=== PATIENT | female | born 1945 | race Caucasian/White ===

== ENCOUNTER 2017-09-09 19:54 | Observation (INO) | payer MEDICARE ==
[~2017-09-09] VITALS: Ht 172.7 cm; Wt 102.0 kg
[2017-09-09 20:03] VITALS: BP 150/74; PULSE 83; RESP 18; O2SAT 98
[2017-09-09] MEDS ORDERED: METF500T PO (20:11)
[2017-09-09] MEDS ORDERED: METO50TA PO (20:11)
[2017-09-09] MEDS ORDERED: IRBE300T44 PO (20:11)
[2017-09-09] MEDS ORDERED: ASPI81TA23 PO (20:11)
[2017-09-09] MEDS ORDERED: AMLO5 PO (20:11)
[2017-09-09 20:15] VITALS: BP 144/68; PULSE 80; RESP 15; O2SAT 98
[2017-09-09] MEDS ORDERED: SODIUM CHLORIDE 0.9% FLUSH 10 ML FLUSH IVF PRN (20:15)
--- NOTE | 2017-09-09 20:20 | PD ---
HPI Chief Complaint: Syncope/Near-Syncope Time Seen by Provider: 20:03 Travel History International Travel<30 days: No Contact w/Intl Traveler<30days: No Traveled to known affect area: No History of Present Illness HPI This is a 71-year-old female who reports a history of hypertension and type 2 diabetes. She presents via EMS for evaluation of a witnessed syncopal event. Prior to arrival the patient was in a park with family members during exercise activities with rubber bands for resistance purposes. She began developing dizziness and lightheadedness. This lasted for approximately 5 minutes and then she had a witnessed syncopal event while in the sitting position. The syncopal event lasted several seconds according to a family member who is present. Per paramedics when fire rescue arrived her blood pressure was 94/60 and her heart rate was in the 40s. When EMS arrived her heart rate was in the 70s and her blood pressure was 110/70. She is currently complaining of a mild frontal headache which started prior to arrival here. She is currently receiving 1 L of normal saline by EMS. She denies any episodic chest pain, shortness of breath, blurred vision, nausea or vomiting, diaphoresis, vertigo, abdominal pain, diarrhea or constipation. She reports that she has had syncopal episodes in the past. Denies any known history of structural heart disease or coronary artery disease. Her primary care physician is Dr. Cannon. No other complaints. PFSH Past Medical History Cerebrovascular Accident: Yes (HTN ) Diabetes: Yes (type 2 on metformin ) Patient Takes Glucophage: Yes ?: Not Menopausal: Yes Past Surgical History Surgical History: No Previous Surgery Hysterectomy: Yes Social History Alcohol Use: No Tobacco Use: No Substance Use: No Allergies-Medications (Allergen,Severity, Reaction): Coded Allergies: codeine (Verified Allergy, Unknown, 09/09/17) Reported Meds & Prescriptions Reported Meds & Active Scripts Active Reported Aspirin EC (Aspirin) 81 Mg Tabdr 81 Mg PO EVERY OTHER DAY Norvasc (Amlodipine Besylate) 5 Mg Tab 5 Mg PO DAILY Avapro (Irbesartan) 300 Mg Tab 300 Mg PO DAILY Metoprolol Tartrate 50 Mg Tab 50 Mg PO BID Metformin (Metformin HCl) 500 Mg Tab 500 Mg PO TIDPC Review of Systems Except as stated in HPI: all other systems reviewed are Neg Physical Exam Narrative GENERAL: Pleasant well-developed well-nourished female in no acute distress resting comfortably in hospital bed. SKIN: Warm and dry. HEAD: Atraumatic. Normocephalic. EYES: Pupils equal and round. No scleral icterus. No injection or drainage. ENT: No nasal bleeding or discharge. Mucous membranes pink and moist. NECK: Trachea midline. No JVD. CARDIOVASCULAR: Regular rate and rhythm. No murmur appreciated. RESPIRATORY: No accessory muscle use. Clear to auscultation. Breath sounds equal bilaterally. GASTROINTESTINAL: Abdomen soft, non-tender, nondistended. Hepatic and splenic margins not palpable. MUSCULOSKELETAL: No obvious deformities. No clubbing. No cyanosis. No edema. NEUROLOGICAL: Awake and alert. No obvious cranial nerve deficits. Motor grossly within normal limits. Normal speech. PSYCHIATRIC: Appropriate mood and affect; insight and judgment normal. Data Data Last Documented VS Vital Signs Date Time Temp Pulse Resp B/P (MAP) Pulse Ox O2 Delivery O2 Flow Rate FiO2 09/09/17 20:15 80 15 144/68 (93) 98 Orders Orders Electrocardiogram (09/09/17 20:07) Complete Blood Count With Diff (09/09/17 20:07) Comprehensive Metabolic Panel (09/09/17 20:07) Magnesium (Mg) (09/09/17 20:07) Ckmb (Isoenzyme) Profile (09/09/17 20:07) Troponin I (09/09/17 20:07) Act Partial Throm Time (Ptt) (09/09/17 20:07) Prothrombin Time / Inr (Pt) (09/09/17 20:07) Ct Brain W/O Iv Contrast(Rout) (09/09/17 20:07) Blood Glucose (09/09/17 20:07) Ecg Monitoring (09/09/17 20:07) Iv Access Insert/Monitor (09/09/17 20:07) Oximetry (09/09/17 20:07) Sodium Chloride 0.9% Flush (Ns Flush) (09/09/17 20:15) Orthostatic Vital Signs (09/09/17 20:07) Chest, Single Ap (09/09/17 ) CKMB (09/09/17 20:38) CKMB% (09/09/17 20:38) Diet 1800 Ada Cons Carb (09/10/17 Breakfast) Labs Laboratory Tests Test 09/09/17 20:38 White Blood Count 6.4 TH/MM3 Red Blood Count 4.42 MIL/MM3 Hemoglobin 12.2 GM/DL Hematocrit 36.8 % Mean Corpuscular Volume 83.4 FL Mean Corpuscular Hemoglobin 27.5 PG Mean Corpuscular Hemoglobin Concent 33.0 % Red Cell Distribution Width 14.3 % Platelet Count 235 TH/MM3 Mean Platelet Volume 8.3 FL Neutrophils (%) (Auto) 67.9 % Lymphocytes (%) (Auto) 20.4 % Monocytes (%) (Auto) 7.2 % Eosinophils (%) (Auto) 3.7 % Basophils (%) (Auto) 0.8 % Neutrophils # (Auto) 4.3 TH/MM3 Lymphocytes # (Auto) 1.3 TH/MM3 Monocytes # (Auto) 0.5 TH/MM3 Eosinophils # (Auto) 0.2 TH/MM3 Basophils # (Auto) 0.1 TH/MM3 CBC Comment DIFF FINAL Differential Comment Prothrombin Time 10.7 SEC Prothromb Time International Ratio 1.1 RATIO Activated Partial Thromboplast Time 22.9 SEC Blood Urea Nitrogen 18 MG/DL Creatinine 1.03 MG/DL Random Glucose 179 MG/DL Total Protein 6.5 GM/DL Albumin 3.4 GM/DL Calcium Level 8.7 MG/DL Magnesium Level 1.6 MG/DL Alkaline Phosphatase 73 U/L Aspartate Amino Transf (AST/SGOT) 22 U/L Alanine Aminotransferase (ALT/SGPT) 31 U/L Total Bilirubin 0.4 MG/DL Sodium Level 139 MEQ/L Potassium Level 3.9 MEQ/L Chloride Level 105 MEQ/L Carbon Dioxide Level 23.8 MEQ/L Anion Gap 10 MEQ/L Estimat Glomerular Filtration Rate 53 ML/MIN Total Creatine Kinase 103 U/L Troponin I LESS THAN 0.02 NG/ML [facility] Medical Decision Making Medical Screen Exam Complete: Yes Emergency Medical Condition: Yes Medical Record Reviewed: Yes Differential Diagnosis Aortic stenosis, arrhythmia, dehydration, electrolyte abnormality, orthostatic hypotension, subarachnoid hemorrhage, hypoglycemia, seizure Narrative Course 71-year-old female presents after having an exertional syncopal episode. Patient was placed on ECG monitoring pulse oximetry. 12-lead EKG was obtained revealing sinus rhythm with occasional supraventricular premature complexes. CT the brain reveals no acute abnormalities. CBC is unremarkable. CMP reveals a GFR 53, glucose 179. Cardiac enzymes are normal. The patient has remained stable during her ED stay. At this point time the plan will be to admit her for observation for further evaluation of her exertional syncopal event. She is agreeable. Diagnosis Primary Impression: Syncope Admitting Information Admitting Physician Requests: Observation Ariel Zhang Sep 09, 2017 20:20
--- NOTE | 2017-09-09 20:34 | RADRPT ---
EXAM DATE/TIME: 09/09/2017 20:19 [facility] COMPARISON: No previous studies available for comparison. INDICATIONS : Syncope RADIATION DOSE: 36.97 CTDIvol (mGy) MEDICAL HISTORY : Hypertension. Diabetes mellitus type 2. SURGICAL HISTORY : Hysterectomy. ENCOUNTER: Initial ACUITY: 1 day PAIN SCALE: 3/10 LOCATION: cranial TECHNIQUE: Multiple contiguous axial images were obtained of the head. Using automated exposure control and adj ustment of the mA and/or kV according to patient size, radiation dose was kept as low as reasonably a chievable to obtain optimal diagnostic quality images. DICOM format image data is available electro nically for review and comparison. FINDINGS: CEREBRUM: The ventricles are normal for age. No evidence of midline shift, mass lesion, hemorrhage or acute in farction. No extra-axial fluid collections are seen. POSTERIOR FOSSA: The cerebellum and brainstem are intact. The 4th ventricle is midline. The cerebellopontine angle i s unremarkable. EXTRACRANIAL: The visualized portion of the orbits is intact. SKULL: The calvaria is intact. No evidence of skull fracture. CONCLUSION: Negative noncontrast head CT. Ronny Drew MD on September 09, 2017 at 20:31 Board Certified Radiologist. This report was verified electronically.
[2017-09-09 21:21] LABS: AUTOMATED NEUTROPHIL # 4.3 TH/MM3 (1.8-7.7); BASOPHIL # 0.1 TH/MM3 (0-0.2); BASOPHIL % 0.8 % (0.0-2.0); EOSINOPHIL # 0.2 TH/MM3 (0-0.4); EOSINOPHIL % 3.7 % (0.0-4.0); HEMATOCRIT 36.8 % (35.0-46.0); HEMOGLOBIN 12.2 GM/DL (11.6-15.3); LYMPH % 20.4 % (9.0-44.0); LYMPHOCYTE # 1.3 TH/MM3 (1.0-4.8); MEAN CELL VOLUME 83.4 FL (80.0-100.0); MEAN CORPUSCULAR HEMOGLOBIN 27.5 PG (27.0-34.0); MEAN PLATELET VOLUME 8.3 FL (7.0-11.0); MONO % 7.2 % (0.0-8.0); MONOCYTE # 0.5 TH/MM3 (0-0.9); NEUT % 67.9 % (16.0-70.0); PLATELET COUNT 235 TH/MM3 (150-450); RED BLOOD COUNT 4.42 MIL/MM3 (4.00-5.30); RED CELL DISTRIBUTION WIDTH 14.3 % (11.6-17.2); WHITE BLOOD COUNT 6.4 TH/MM3 (4.0-11.0)
[2017-09-09 21:33] LABS: INTERNATIONAL NORMALIZED RATIO 1.1 RATIO; PROTHROMBIN TIME - PATIENT 10.7 SEC (9.8-11.6)
[2017-09-09 21:49] LABS: ALBUMIN 3.4 GM/DL (3.4-5.0); ALT (GPT) 31 U/L (10-53); AST (GOT) 22 U/L (15-37); BICARBONATE 23.8 MEQ/L (21.0-32.0); BLOOD UREA NITROGEN 18 MG/DL (7-18); CALCIUM 8.7 MG/DL (8.5-10.1); CHLORIDE 105 MEQ/L (98-107); CREATININE 1.03 MG/DL (0.50-1.00); GLOMERULAR FILTRATION RATE 53 ML/MIN (>89); GLUCOSE,RANDOM 179 MG/DL (74-106); MAGNESIUM 1.6 MG/DL (1.5-2.5); SODIUM (NA) 139 MEQ/L (136-145)
[2017-09-09 21:53] LABS: ALKALINE PHOSPHATASE 73 U/L (45-117); TOTAL BILIRUBIN ADULT 0.4 MG/DL (0.2-1.0); TOTAL PROTEIN 6.5 GM/DL (6.4-8.2); TROPONIN I LESS THAN 0.02 NG/ML (0.02-0.05)
--- NOTE | 2017-09-09 22:16 | RADRPT ---
EXAM DATE/TIME: 09/09/2017 21:49 [facility] COMPARISON: No previous studies available for comparison. INDICATIONS : Syncope. MEDICAL HISTORY : Hypertension. SURGICAL HISTORY : None. ENCOUNTER: Initial ACUITY: 1 day PAIN SCORE: 0/10 LOCATION: Bilateral chest FINDINGS: A single view of the chest demonstrates the lungs to be symmetrically aerated without evidence of mas s, infiltrate or effusion. The cardiomediastinal contours are unremarkable. Osseous structures are intact. CONCLUSION: No acute cardiopulmonary disease demonstrated. Ronny Drew MD on September 09, 2017 at 22:14 Board Certified Radiologist. This report was verified electronically.
[2017-09-09] MEDS ORDERED: NALOXONE HCL 0.4 MG/ML AMP IV PUSH PRN (23:00)
[2017-09-09] MEDS ORDERED: SODIUM CHLORIDE 0.9% FLUSH 10 ML FLUSH IV FLUSH PRN (23:00)
[2017-09-09] MEDS ORDERED: GLUCAGON 1 MG/ML VIAL OTHER PRN (23:00)
[2017-09-09] MEDS ORDERED: ACETAMINOPHEN 325 MG TAB PO PRN (23:00)
[2017-09-09] MEDS ORDERED: DEXTROSE 50% IN WATER 50 ML VIAL(D50) IV PUSH PRN (23:00)
[2017-09-09] MEDS ORDERED: ONDANSETRON HCL 4 MG/2 ML VIAL IVP PRN (23:00)
--- NOTE | 2017-09-09 23:11 | HHI.HP ---
[facility] Service [facility] Primary Care Physician Unknown Admission Diagnosis Syncope Diagnoses: Travel History International Travel<30 Days: No Contact w/Intl Traveler <30 Da: No Traveled to Known Affected Are: No History of Present Illness 71-year-old female with a past medical history significant for hypertension and type 2 diabetes mellitus presents to the emergency department for evaluation of a syncopal episode. The patient reports she was working out with her family when she felt dizzy. She stopped working out and sat down and continued to feel lightheaded. She had 2 short episodes of loss of consciousness lasting approximately 2-3 seconds each time, witnessed by family members. No seizure activity. No bowel or bladder incontinence. She denies any associated chest pain or shortness of breath. No fevers/chills. No abdominal pain. No nausea/ vomiting/diarrhea. No lateralizing signs/symptoms. Review of Systems Except as stated in HPI: all other systems reviewed are Neg Past Family Social History Past Medical History Hypertension Diabetes mellitus Past Surgical History Hysterectomy Collarbone repair in childhood Reported Medications Reported Meds & Active Scripts Active Reported Aspirin EC (Aspirin) 81 Mg Tabdr 81 Mg PO EVERY OTHER DAY Norvasc (Amlodipine Besylate) 5 Mg Tab 5 Mg PO DAILY Avapro (Irbesartan) 300 Mg Tab 300 Mg PO DAILY Metoprolol Tartrate 50 Mg Tab 50 Mg PO BID Metformin (Metformin HCl) 500 Mg Tab 500 Mg PO TIDPC Allergies: Coded Allergies: codeine (Verified Allergy, Unknown, 09/09/17) Family History Negative for CAD/DM Social History Denies alcohol, tobacco and illicit drug Physical Exam Vital Signs Vital Signs Date Time Temp Pulse Resp B/P (MAP) Pulse Ox O2 Delivery O2 Flow Rate FiO2 09/09/17 20:15 80 15 144/68 (93) 98 09/09/17 20:03 83 18 150/74 (99) 98 Physical Exam GENERAL: female sitting up in bed SKIN: No rashes, ecchymoses or lesions. Cool and dry. HEAD: Atraumatic. Normocephalic. No temporal or scalp tenderness. EYES: Pupils equal round and reactive. Extraocular motions intact. No scleral icterus. No injection or drainage. ENT: Nose without bleeding, purulent drainage or septal hematoma. Throat without erythema, tonsillar hypertrophy or exudate. Uvula midline. Airway patent. NECK: Trachea midline. No JVD or lymphadenopathy. Supple, nontender, no meningeal signs. CARDIOVASCULAR: Regular rate and rhythm without murmurs, gallops, or rubs. RESPIRATORY: Clear to auscultation. Breath sounds equal bilaterally. No wheezes , rales, or rhonchi. GASTROINTESTINAL: Abdomen soft, non-tender, nondistended. No hepato-splenomegaly , or palpable masses. No guarding. MUSCULOSKELETAL: Bilateral pedal edema. No calf tenderness. NEUROLOGICAL: Awake and alert. Cranial nerves II through XII intact. Motor and sensory grossly within normal limits. Normal speech. Laboratory Laboratory Tests Test 09/09/17 20:38 White Blood Count 6.4 Red Blood Count 4.42 Hemoglobin 12.2 Hematocrit 36.8 Mean Corpuscular Volume 83.4 Mean Corpuscular Hemoglobin 27.5 Mean Corpuscular Hemoglobin Concent 33.0 Red Cell Distribution Width 14.3 Platelet Count 235 Mean Platelet Volume 8.3 Neutrophils (%) (Auto) 67.9 Lymphocytes (%) (Auto) 20.4 Monocytes (%) (Auto) 7.2 Eosinophils (%) (Auto) 3.7 Basophils (%) (Auto) 0.8 Neutrophils # (Auto) 4.3 Lymphocytes # (Auto) 1.3 Monocytes # (Auto) 0.5 Eosinophils # (Auto) 0.2 Basophils # (Auto) 0.1 CBC Comment DIFF FINAL Differential Comment Prothrombin Time 10.7 Prothromb Time International Ratio 1.1 Activated Partial Thromboplast Time 22.9 Blood Urea Nitrogen 18 Creatinine 1.03 Random Glucose 179 Total Protein 6.5 Albumin 3.4 Calcium Level 8.7 Magnesium Level 1.6 Alkaline Phosphatase 73 Aspartate Amino Transf (AST/SGOT) 22 Alanine Aminotransferase (ALT/SGPT) 31 Total Bilirubin 0.4 Sodium Level 139 Potassium Level 3.9 Chloride Level 105 Carbon Dioxide Level 23.8 Anion Gap 10 Estimat Glomerular Filtration Rate 53 Total Creatine Kinase 103 Creatine Kinase MB 1.3 Troponin I LESS THAN 0.02 Result Diagram: 09/09/17203709/09/172037 Caprini VTE Risk Assessment Caprini VTE Risk Assessment: Mod/High Risk (score >= 2) Caprini Risk Assessment Model Point Value = 1 Point Value = 2 Point Value = 3 Point Value = 5 Age 41-60 Minor surgery BMI > 25 kg/m2 Swollen legs Varicose veins or History of unexplained or recurrent spontaneous Oral contraceptives or hormone replacement Sepsis (< 1 month) Serious lung disease, including pneumonia (< 1 month) Abnormal pulmonary function Acute myocardial infarction Congestive heart failure (< 1 month) History of inflammatory bowel disease Medical patient at bed rest Age 61-74 Arthroscopic surgery Major open surgery (> 45 min) Laparoscopic surgery (> 45 min) Malignancy Confined to bed (> 72 hours) Immobilizing plaster cast Central venous access Age >= 75 History of VTE Family history of VTE Factor V Leiden Prothrombin [id number] Lupus anticoagulant Anticardiolipin antibodies Elevated serum homocysteine Heparin-induced thrombocytopenia Other congenital or acquired thrombophilia Stroke (< 1 month) Elective arthroplasty Hip, pelvis, or leg fracture Acute spinal cord injury (< 1 month) Prophylaxis Regimen Total Risk Factor Score Risk Level Prophylaxis Regimen 0-1 Low Early ambulation 2 Moderate Order ONE of the following: *Sequential Compression Device (SCD) *Heparin 5000 units SQ BID 3-4 Higher Order ONE of the following medications: *Heparin 5000 units SQ TID *Enoxaparin/Lovenox 40 mg SQ daily (WT < 150 kg, CrCl > 30 mL/min) *Enoxaparin/Lovenox 30 mg SQ daily (WT < 150 kg, CrCl > 10-29 mL/min) *Enoxaparin/Lovenox 30 mg SQ BID (WT < 150 kg, CrCl > 30 mL/min) AND/OR *Sequential Compression Device (SCD) 5 or more Highest Order ONE of the following medications: *Heparin 5000 units SQ TID (Preferred with Epidurals) *Enoxaparin/Lovenox 40 mg SQ daily (WT < 150 kg, CrCl > 30 mL/min) *Enoxaparin/Lovenox 30 mg SQ daily (WT < 150 kg, CrCl > 10-29 mL/min) *Enoxaparin/Lovenox 30 mg SQ BID (WT < 150 kg, CrCl > 30 mL/min) AND *Sequential Compression Device (SCD) Assessment and Plan Assessment and Plan Assessment/plan: 1. Syncope Unclear etiology Orthostatic vital signs pending Head CT negative Echo, carotid ultrasound pending Telemetry 2. Diabetes mellitus Holding home metformin Sliding-scale insulin Monitor blood glucose 3. Hypertension Continue home antihypertensives, current BP 150/74 FEN Heart healthy diet Electrolytes: Monitor and replete as needed Heparin Ning Rockwell MD Sep 09, 2017 23:11
[2017-09-09] MEDS ORDERED: SODIUM CHLOR 0.9% 1000 ML INJ 1,000 ML IV SCH (23:15)
[2017-09-09 23:17] VITALS: BP 143/68
[2017-09-10 00:11] VITALS: BP 133/63; PULSE 81; RESP 18; TEMP 97.5; O2SAT 96
[2017-09-10 00:17] VITALS: BP_SYST 131; BP_SYST 151; BP_DIAS 62; BP_DIAS 70; PULSE 86; PULSE 90
[2017-09-10 04:00] VITALS: BP 144/70; PULSE 77; RESP 17; TEMP 97.8; O2SAT 95
[2017-09-10 04:04] VITALS: PULSE 71
[2017-09-10 07:11] LABS: AUTOMATED NEUTROPHIL # 2.6 TH/MM3 (1.8-7.7); BASOPHIL # 0.1 TH/MM3 (0-0.2); BASOPHIL % 1.1 % (0.0-2.0); EOSINOPHIL # 0.2 TH/MM3 (0-0.4); EOSINOPHIL % 4.5 % (0.0-4.0); HEMATOCRIT 34.9 % (35.0-46.0); HEMOGLOBIN 11.9 GM/DL (11.6-15.3); LYMPH % 32.5 % (9.0-44.0); LYMPHOCYTE # 1.6 TH/MM3 (1.0-4.8); MEAN CELL VOLUME 83.4 FL (80.0-100.0); MEAN CORPUSCULAR HEMOGLOBIN 28.4 PG (27.0-34.0); MEAN PLATELET VOLUME 8.3 FL (7.0-11.0); MONO % 8.2 % (0.0-8.0); MONOCYTE # 0.4 TH/MM3 (0-0.9); NEUT % 53.7 % (16.0-70.0); PLATELET COUNT 220 TH/MM3 (150-450); RED BLOOD COUNT 4.18 MIL/MM3 (4.00-5.30); RED CELL DISTRIBUTION WIDTH 13.9 % (11.6-17.2); WHITE BLOOD COUNT 4.9 TH/MM3 (4.0-11.0)
[2017-09-10 07:42] LABS: BICARBONATE 25.7 MEQ/L (21.0-32.0); CALCIUM 8.8 MG/DL (8.5-10.1); CREATININE 0.78 MG/DL (0.50-1.00)
[2017-09-10] MEDS: INSULIN ASPART SUPPLEMENTAL SCALE SQ SCH ×2 (08:00→12:25)
[2017-09-10 08:03] VITALS: BP_SYST 141; BP_SYST 157; BP_SYST 159; BP_DIAS 69; BP_DIAS 74; BP_DIAS 75; PULSE 78; RESP 18; TEMP 98.3; O2SAT 96
[2017-09-10] MEDS ORDERED: LOSARTAN 50 MG TAB PO SCH (09:00)
[2017-09-10] MEDS ORDERED: METOPROLOL TARTRATE 50 MG TAB PO SCH (09:00)
[2017-09-10] MEDS ORDERED: amLODIPine BESYLATE 5 MG TAB PO SCH (09:00)
[2017-09-10] MEDS ORDERED: SODIUM CHLORIDE 0.9% FLUSH 10 ML FLUSH IV FLUSH SCH (09:00)
[2017-09-10] MEDS ORDERED: HEPARIN SODIUM - SQ 10,000 UNITS/ML VIAL SQ SCH (09:00)
--- NOTE | 2017-09-10 10:03 | HHI.PR ---
Subjective Remarks Follow-up on patient with syncopal episode. Patient seen and examined. Patient states she feels fine this morning. She denies any complaints. She denies any dizziness, headache or vision changes. She denies any chest pain or shortness of breath. Denies any fever or chills. Denies any nausea, vomiting or abdominal pain. Patient was apparently working outside with [employer] prior to her syncopal episode. States she had not drank much water that day. She denies any associated palpitations, chest pain, shortness of breath, nausea or vomiting. She denies any associated slurred speech, seizure activity, weakness or numbness or tingling. Objective Vitals Vital Signs Date Time Temp Pulse Resp B/P (MAP) Pulse Ox O2 Delivery O2 Flow Rate FiO2 09/10/17 08:03 98.3 78 18 141/69 (93) 96 159/75 (103) 157/74 (101) 09/10/17 04:04 71 09/10/17 04:00 97.8 77 17 144/70 (94) 95 09/10/17 00:17 86 131/62 (85) 09/10/17 00:17 90 151/70 (97) 09/10/17 00:11 97.5 81 18 133/63 (86) 96 09/09/17 23:17 80 18 143/68 (93) 99 09/09/17 20:15 80 15 144/68 (93) 98 09/09/17 20:03 83 18 150/74 (99) 98 Result Diagram: 09/10/1762309/10/17623 Imaging Last Impressions Head CT 09/09/172006 Signed Impressions: Service Date/Time: August 20:19 - CONCLUSION: Negative noncontrast head CT. Ronny Drew MD Chest X-Ray 09/09/17 0000 Signed Impressions: Service Date/Time: August 21:49 - CONCLUSION: No acute cardiopulmonary disease demonstrated. Ronny rDew MD Objective Remarks GENERAL: Well-developed well-nourished elderly female patient. Awake and alert. Sitting up in bed. Appears comfortable. SKIN: Warm and dry. HEAD: Atraumatic. Normocephalic. No temporal or scalp tenderness. EYES: Pupils equal round and reactive. Extraocular motions intact. No scleral icterus. No injection or drainage. ENT: Nose without bleeding or purulent drainage. Airway patent. MMM. NECK: Trachea midline. CARDIOVASCULAR: Regular rate and rhythm without murmurs, gallops, or rubs. RESPIRATORY: Clear to auscultation. Breath sounds equal bilaterally. No wheezes , rales, or rhonchi. GASTROINTESTINAL: Abdomen soft, non-tender, nondistended. No hepato-splenomegaly , or palpable masses. No guarding. MUSCULOSKELETAL: BLE no cyanosis, clubbing or edema noted. No calf tenderness. NEUROLOGICAL: Awake and alert. Cranial nerves II through XII grossly intact. Motor and sensory grossly within normal limits. No focal neurologic findings. Normal speech. PSYCHIATRIC: Appropriate mood and affect. Normal judgment and insight. Medications and IVs Current Medications Medications (Trade) Dose Ordered Sig/Ant Route Start Time Stop Time Status Last Admin (NS Flush) 2 ml UNSCH PRN IV FLUSH 09/09/17 23:00 (NS Flush) 2 ml BID IV FLUSH 09/10/17 09:00 (Tylenol) 650 mg Q4H PRN PO 09/09/17 23:00 (Zofran Inj) 4 mg Q6H PRN IVP 09/09/17 23:00 (Narcan Inj) 0.4 mg UNSCH PRN IV PUSH 09/09/17 23:00 (D50w (Vial) Inj) 50 ml UNSCH PRN IV PUSH 09/09/17 23:00 (Glucagon Inj) 1 mg UNSCH PRN OTHER 09/09/17 23:00 (NovoLOG SUPPLEMENTAL SCALE) 1 ACHS SLIDING SCALE SQ 09/10/17 08:00 Sodium Chloride 1,000 ml @ 84 mls/hr [id number] IV 09/09/17 23:15 09/09/17 23:15 (Norvasc) 5 mg DAILY PO 09/10/17 09:00 09/10/17 09:35 (Ecotrin Ec) 81 mg EVERY OTHER DAY PO 09/11/17 09:00 (Lopressor) 50 mg BID PO 09/10/17 09:00 09/10/17 09:35 (Cozaar) 100 mg DAILY PO 09/10/17 09:00 09/10/17 09:35 (Heparin Inj) 5,000 units Q12HR SQ 09/10/17 09:00 09/10/17 09:35 A/P Assessment and Plan 71-year-old female with a past medical history significant for hypertension and type 2 diabetes mellitus presents to the emergency department for evaluation of a syncopal episode. Syncope Unclear etiology, suspect secondary to dehydration, volume depletion Orthostatic vital signs negative EEG with no e/o seizure activity Carotid US with no hemodynamically significant stenosis Head CT negative -Follow-up on carotid ultrasound and echocardiogram results -continue IVF -Continue to monitor on telemetry -Holter monitor -PT eval with no post discharge needs identified JOHNNIE, resolved Suspect secondary to dehydration, volume depletion -Unknown baseline, no labs for comparison -Creatinine 1.03 at admission, improved to 0.78 s/p IVF -Avoid nephrotoxic agents -Continue to monitor kidney function as indicated Diabetes mellitus -continue to hold home metformin -Sliding-scale insulin -Monitor blood glucose -obtain A1c level -Change to heart healthy diabetic diet Hypertension -Continue patient on home dose of Norvasc 5 mg daily, Lopressor 51 g twice daily and Cozaar 100 mg daily -Continue to monitor BP and adjust treatment accordingly FEN Heart healthy diabetic diet Electrolytes: Monitor and replete as needed Heparin 1553 echocardiogram resulted: Left ventricular systolic function is normal with an estimated ejection fraction in the range of 55-60%. Wall thickness is measured at the upper limits of normal. Mild mitral valve regurgitation. [id number] aortic valve regurgitation. There is trace tricuspid valve regurgitation. Trivial pulmonary valve regurgitation. Discharge patient to home Condition on discharge: Improved Heart healthy diabetic Diet as tolerated Ad Hattie activity Rx written: Follow-up with primary care physician and cardiology Nadege Talley Sep 10, 2017 10:03
--- NOTE | 2017-09-10 11:49 | RADRPT ---
EXAM DATE/TIME: 09/10/2017 11:07 [facility] COMPARISON: No previous studies available for comparison. INDICATIONS : Syncope. MEDICAL HISTORY : Hypertension. Diabetes mellitus type 2. Syncope. CVA. SURGICAL HISTORY : Hysterectomy. Ankle and collar bone fracture. ENCOUNTER: Initial ACUITY: 1 day PAIN SCORE: 0/10 LOCATION: Bilateral neck PEAK SYSTOLIC VELOCITIES (cm/sec): ICA/CCA RATIO: Right: 0.9 Left: 1.2 ICA: Right: 69 Left: 96 CCA: Right: 81 Left: 81 ECA: Right: 84 Left: 69 VERTEBRAL: Right: 46 antegrade Left: 33 antegrade Elevated flow velocities and ICA/CCA ratios have been found to correlate with increased degrees of vessel stenosis, calculated as percentage of diameter relative to a normal segment of distal ICA/CCA FINDINGS: RIGHT CAROTID: Calcified plaque in the right carotid bulb extending up into the internal. The waveforms are within normal limits. LEFT CAROTID: No significant stenosis is visualized. The waveforms are within normal limits. VERTEBRAL ARTERIES: Antegrade flow is seen in both vertebral arteries. MISCELLANEOUS: None. CONCLUSION: 1. Calcified plaque in the right carotid bulb extending into the internal. 2. However, no sonographic or Doppler findings of a hemodynamically significant stenosis. Antegrade f low in both vertebral arteries. Fidencio Cartagena MD on September 10, 2017 at 11:44 Board Certified Radiologist. This report was verified electronically.
[2017-09-10 11:57] VITALS: BP 136/64; PULSE 73; RESP 18; TEMP 98.7; O2SAT 96
--- NOTE | 2017-09-10 13:46 | EKG ---
Date Performed: 09/09/2017 Time Performed: 20:31:58 PTAGE: 71 years EKG: Sinus rhythm WITH OCCASIONAL SUPRAVENTRICULAR PREMATURE COMPLEXES BORDERLINE ECG PREVIOUS TRACING : 04/13/2005 21.34 Since the previous tracing, no significant change noted DOCTOR: Reji Friend Interpretating Date/Time 09/10/2017 13:43:58
--- NOTE | 2017-09-10 15:09 | MG ---
cc: Nico Nicolas MD, PhD DATE OF STUDY: 09/10/2017 TEST NUMBER: [id number] TECHNIQUE: This is a 17-channel EEG. DESCRIPTION: Background rhythm is symmetrical alpha frequency, 8 Hz amplitude, 20 microvolts. No lateralizing features are identified. No epileptiform features are identified. There is some muscle artifact present. Hyperventilation was done with no change in background rhythm. Photic stimulation is normal. INTERPRETATION: Normal electroencephalogram. Nico Nicolas MD, PhD BLAS/KD , 02:55 PM , 03:08 PM
--- NOTE | 2017-09-10 15:41 | ECHRPT ---
Indication: Syncope CONCLUSIONS The left ventricular systolic function is normal with an estimated ejection fraction in the range of 55-60%. Wall thickness is measured at the upper limits of normal. Mild mitral valve regurgitation. [id number]-[id number] aortic valve regurgitation. There is trace tricuspid valve regurgitation. Trivial pulmonary valve regurgitation. BP: 157 / 74 HR: 52 Rhythm: Sinus MEASUREMENTS (Male / Female) Normal Values Technical Quality:Fair 2D ECHO LV Diastolic Diameter PLAX 4.5 cm 4.2 - 5.9 / 3.9 - 5.3 cm LV Systolic Diameter PLAX 3.1 cm IVS Diastolic Thickness 1.0 cm 0.6 - 1.0 / 0.6 - 0.9 cm LVPW Diastolic Thickness 1.0 cm 0.6 - 1.0 / 0.6 - 0.9 cm LV Relative Wall Thickness 0.4 RV Internal Dim ED PLAX 3.9 cm LVOT Diameter 2.2 cm LA Systolic Diameter LX 4.8 cm 3.0 - 4.0 / 2.7 - 3.8 cm M-MODE Aortic Root Diameter MM 2.8 cm LA Systolic Diameter MM 4.9 cm LA Ao Ratio MM 1.8 AV Cusp Separation MM 2.1 cm DOPPLER AV Peak Velocity 115.0 cm/s AV Peak Gradient 5.3 mmHg AI Peak Velocity 425.0 cm/s AI Peak Gradient 72.3 mmHg AI Pressure Half Time 522.5 ms LVOT Peak Velocity 90.2 cm/s LVOT Peak Gradient 3.3 mmHg AV Area Cont Eq pk 3.0 cm MV Area PHT 3.7 cm Mitral E Point Velocity 81.4 cm/s Mitral A Point Velocity 71.0 cm/s Mitral E to A Ratio 1.1 LV E' Lateral Velocity 9.1 cm/s Mitral E to LV E' Lateral Ratio 9.0 LV E' Septal Velocity 9.9 cm/s Mitral E to LV E' Septal Ratio 8.2 TR Peak Velocity 261.0 cm/s TR Peak Gradient 27.2 mmHg Right Atrial Pressure 10.0 mmHg Pulmonary Artery Systolic Pressu 37.2 mmHg Right Ventricular Systolic Press 37.2 mmHg FINDINGS LEFT VENTRICLE The left ventricular systolic function is normal with an estimated ejection fraction in the range of 55-60%. Wall thickness is measured at the upper limits of normal. Normal left ventricular size. RIGHT VENTRICLE Normal right ventricular size and systolic function. LEFT ATRIUM The left atrial size is mildly dilated. RIGHT ATRIUM The right atrial size is normal. ATRIAL SEPTUM Normal atrial septal thickness without atrial level shunting by limited color doppler interrogation. AORTA The aortic root and proximal ascending aorta are normal in size on limited imaging. MITRAL VALVE Structurally normal mitral valve. Mild mitral valve regurgitation. No mitral valve stenosis. AORTIC VALVE Trileaflet aortic valve. [id number] aortic valve regurgitation. No aortic valve stenosis. TRICUSPID VALVE Structurally normal tricuspid valve. There is trace tricuspid valve regurgitation. The estimated pulmonary arterial pressure is 37.2 mmHg. PULMONARY VALVE Trivial pulmonary valve regurgitation. VESSELS The inferior vena cava is normal in size. PERICARDIUM No pericardial effusion. Darian Jarvis DO (Electronically Signed) Final Date:10 September 2017 15:40
[2017-09-10 15:50] LABS: HEMOGLOBIN A1C 6.7 % (4.3-6.0)
[2017-09-11] MEDS ORDERED: ASPIRIN EC 81 MG TABEC PO SCH (09:00)
--- NOTE | 2017-09-12 00:27 | HM ---
Date Performed: 09/10/2017 Time Performed: 10:50:00 HOOKUP DATE: 09/10/17 10:50:00 AM Fri ANALYSIS START TIME: 09/10/2017 10:55:00 AM ANALYSIS END TIME: 09/11/2017 10:59:00 AM PATIENT AGE: 71 PATIENT HEIGHT PATIENT WEIGHT DRUG LIST PATIENT DIAGNOSIS: SYNCOPE TEST NARRATIVE: The patient's average heart rate was 73 BPM. No episodes of tachycardia wer e noted. No episodes of bradycardia were noted. No pauses exceeding 2.0 seconds were noted. 2 ventricular ectopics, which represented < 1% of the total beat count, were noted. The highest vent ricular ectopic frequency occurred from 11:00 PM to 12:00 AM Sat. During this time 1 VE(s) occurred. Ventricular ectopics were observed as 2 isolated beat(s) only. No couplets or runs were noted. 10 supraventricular ectopics, which represented < 1% of the total beat count, were noted. The highe st supraventricular ectopic frequency occurred from 12:00 PM to 01:00 PM Fri. During this time 3 SVE (s) occurred. Multiple episodes of ST depression (defined as -1.0 mm or more) were noted in [facility] 1. The maximum depression of -3.0 mm occurred at 06:46:10 PM Fri. Multiple episodes of ST depre ssion (defined as -1.0 mm or more) were noted in channel 2. The maximum depression of -2.6 mm occur red at 10:29:34 AM Sat. In channel 3, a single episode of ST depression (defined as -1.0 mm or more) occurred at 06:48:52 PM Fri with a maximum depression of -1.9 mm. NO ENTRIES IN THE PATIENT DIARY. TEST INTERPRETATION: 1) Underlying Sinus rhythm 2) No pauses noted 3) Rare PVC/PAC 4) 3 beat run of PAT 5) ST depressions noted in all leads during exam 6) No diary returned Signed b y : Darian Jarvis
== END 2017-09-10 17:22 | disposition home or self-care (01) ==
LOC: NEPC 19:54 → NEDA 22:08 → NEPHCDU 23:30
PROVIDERS: ADMIT Hospitalist; ATTEND Hospitalist
DX: R55 Syncope and collapse (principal); E11.9 Type 2 diabetes mellitus without complications; I10 Essential (primary) hypertension; I08.0 Rheumatic disorders of both mitral and aortic valves; R51 Headache; I49.3 Ventricular premature depolarization; R42 Dizziness and giddiness; Z79.899 Other long term (current) drug therapy; Z79.82 Long term (current) use of aspirin; Z79.84 Long term (current) use of oral hypoglycemic drugs
CPT/HCPCS: 70450; 71045; 80048; 80053; 82550; 82552; 82948; 83036; 83735; 84484; 85025; 85610; 85730; 93005; 93225; 93226; 93306; 93880; 95819; 96360; 96361; 97161; 99285; G0378; G8987; G8988; J1644; J7030